=== PATIENT | female | born 1985 | race Two or more races ===

== ENCOUNTER 2016-03-02 16:05 | Inpatient (IN) | payer OTHER ==
[~2016-03-02] VITALS: Ht 165.1 cm; Wt 115.2 kg
[~2016-03-02 16:05] MED LIST: PREN1TAB47 PO
[2016-03-02] MEDS ORDERED: Phenylephrine 10,000 mCg/mL Inj ONE (16:50)
[2016-03-02] MEDS ORDERED: Oxytocin 10 Unit/mL Inj ONE (16:50)
[2016-03-02] MEDS ORDERED: Morphine PF 1 mg/mL 10 mL Inj ONE (16:50)
[2016-03-02] MEDS ORDERED: Bupiv-Spinal 0.75%/Dex 8.25% 2 mL Inj ONE (16:50)
[2016-03-02 16:57] LABS: Mean Corpuscular Hemoglobin 29.7 pg (27.0-35.0); Mean Corpuscular Volume 87.9 fL (81-100)
[2016-03-02] MEDS ORDERED: CeFAZolin Inj 2 GM in IV Premix 1 EACH IV SCH (17:00)
[2016-03-02] MEDS ORDERED: Sodium Citrate-Citric Acid 15 mL Solution PO SCH (17:00)
[2016-03-02] MEDS ORDERED: CeFAZolin 2 Gm/50 mL D5W Duplex Bag IV ONE (17:06)
[2016-03-02] MEDS ORDERED: Lactated Ringer's 2,000 ML IV ONE (17:06)
[2016-03-02] MEDS ORDERED: Morphine PF 1 mg/mL 10 mL Inj INTRATHEC ONE (17:30)
[2016-03-02] MEDS ORDERED: Lactated Ringer's 1,000 ML IV ONE (17:40)
--- NOTE | 2016-03-02 18:21 | PCM.HPANE ---
Patient Data Date of Service: Mar 02, 2016 ([id number]) Surgeon Admitting Provider:Inocente Beck MD Attending Provider:Inocente Beck MD Primary Care Physician:Inocente Beck MD Other Provider: Reason for Visit Term Labor Check Ht/WT & BMI Body Mass Index Allergies Coded Allergies: No Known Allergies (Unverified Allergy, Unknown, 03/02/16) Medications Reported Medications Vit/Fe Fumarate/Fa-Expunged Drug, Do (-Expunged Drug, Do Not Renew!)1 Tab Tablet1 Tab PO DAILY 01/06/12 Stop/Bang Risk Assessment Category Category 1A: Patient has history of documented sleep apnea, and HAS NOT received any narcotic, sedative or anesthesia administration during this stay. Category 1B: Patient has history of documented sleep apnea, and HAS received any narcotic , sedative or anesthesia administration during this stay Category 2: Patient has SUSPECTED Obstructive Sleep Apnea, and HAS received any narcotic , sedative or anesthesia administration during this stay. Category 3: Patient has SUSPECTED Obstructive Sleep Apnea and HAS NOT received narcotic, sedative or anesthesia administration during this stay. Category 4: Outpatient in Procedural Areas with known sleep apnea or who screen positive for High Risk via the STOP/BANG questionnaire. Exam Exam General Appearance: Alert, Oriented X3, Cooperative HEENT/AIRWAY: MP 2, Neck Movement (FROM), Mouth Opening (3 FBMO) Lungs: Normal Air Movement Heart: Regular Rate/Rhythm Meds/Labs/Diagnostics Admission Meds Current Medications Lactated Ringer's (Lr) 2,000 ml @ ud STK-MED ONCE IV Last administered on t 17:13; Start 03/02/16 at 17:06; Stop 03/02/16 at 17:07; Status DC Labs Test 03/02/16 16:50 White Blood Count 10.3th/mm3 (3.8-10.1) Red Blood Count 4.31mil/mm3 (3.90-5.20) Hemoglobin 12.8g/dL (12.0-15.6) Hematocrit 37.9% (35.0-46.0) Mean Corpuscular Volume 87.9fL (81-100) Mean Corpuscular Hemoglobin 29.7pg (27.0-35.0) Mean Corpuscular Hemoglobin Concent 33.8% (32.0-37.0) Red Cell Distribution Width 13.6% (12.3-15.4) Platelet Count 208bil/L (150-400) Plan Impression Patient chart reviewed, patient interviewed and anesthestic plan with risks, benefits, and alternatives discussed, and informed consent obtained. NPO Status: EMERGENT C/S SECONDARY TO NRFHT, AT TOAST AROUND 4 HRS AGO ASA Physical Status: ASA2 Mod Systemic Disease Anesthetic Plan: SAB Bene/Risks/Altern/Consents: Yes HP Complete Prior to Induction: Yes Other Discussion with Dr. Javier about GETA vrs SAB. Dr Javier believed SAB was OK as long as it didn't take too long. Anesthesia risks discussed. AQA. Consent signed. Dillan Jenkins MD Mar 02, 2016 18:21
[2016-03-02] MEDS ORDERED: Lactated Ringer's 1,000 ML IV SCH (19:07)
[2016-03-02] MEDS ORDERED: Oxytocin 30 Units/500 mL LR 30 UNITS in IV Premix 1 EACH IV PRN (19:10)
[2016-03-02] MEDS ORDERED: HYDROcodone-APAP 5-325 mg Tablet PO PRN (19:10)
[2016-03-02] MEDS ORDERED: Oxytocin 10 Unit/mL Inj IM PRN (19:10)
[2016-03-02] MEDS ORDERED: Methylergonovine 0.2 mg/mL Inj IM PRN (19:10)
[2016-03-02] MEDS ORDERED: Carboprost 250 mCg/mL Inj IM PRN (19:10)
[2016-03-02] MEDS ORDERED: Acetaminophen IV 1,000 MG in IV Premix 1 EACH IV PRN (19:10)
[2016-03-02] MEDS ORDERED: Sodium Chloride LOK Flush 10 mL Syringe IVFLUSH PRN (19:10)
[2016-03-02] MEDS ORDERED: LANOlin HPA 7 Gm Ointment TOPICAL PRN (19:10)
[2016-03-02] MEDS ORDERED: Hemorrhage Kit, Post Partum XX ONE (19:10)
[2016-03-02] MEDS ORDERED: fentaNYL-PF 50 mCg/mL 2 mL Inj IVPUSH PRN (19:15)
[2016-03-02] MEDS ORDERED: HYDROmorphone 1 mg/mL Inj IVPUSH PRN (19:15)
[2016-03-02] MEDS ORDERED: Dexamethasone 4 mg/mL Inj IVPUSH PRN (19:15)
[2016-03-02] MEDS ORDERED: Ondansetron 2 mg/mL 2 mL Inj IVPUSH PRN (19:15)
[2016-03-02] MEDS ORDERED: EPHEDrine Sulfate 50 mg/mL Inj IVPUSH PRN (19:15)
[2016-03-02] MEDS ORDERED: Phenylephrine/NS-PF 100 mCg/mL 5 mL Syringe IVPUSH PRN (19:15)
[2016-03-02] MEDS ORDERED: Atropine 0.4 mg/mL Inj IV PRN (19:15)
--- NOTE | 2016-03-02 19:19 | PCM.ANEP2 ---
Post Anesthesia Evaluation ASA/CMS Post Anesthesia VS in Patient's Normal Range?: Yes Resp Stable; Airway Patent?: Yes CV Function & Hydration Stable: Yes Mental Status Recovered?: Yes Pain control Satisfactory?: Yes N/V Control Satisfactory?: Yes Dillan Jenkins MD Mar 02, 2016 19:19
--- NOTE | 2016-03-02 19:19 | PCM.ANEP1 ---
Post Anesthesia Phase 1 PACU Phase 1 Assessment Date of Service: Mar 02, 2016 (0237) Anesthetic Administered: SAB Level of Alertness: Awake, talking RAMOS's with Equal Strength: No (SAB still in effect) Pain: No Nausea or Vomiting: No Oxygen Delivery: Room Air Lungs: Normal Air Movement Dermatome Level: T10 (Umbilicus) Dillan Jenkins MD Mar 02, 2016 19:19
--- NOTE | 2016-03-02 23:39 | HP ---
[address] [address] HISTORY AND PHYSICAL PATIENT: MIMI VILLAREAL : 1985 MR#: [id number] ADMIT: 03/02/2016 JOB ID: [id number] HISTORY OF PRESENT ILLNESS: This is a 31-year-old female. She is para 3, at 40 weeks . She presented to [facility] for decreased movement. She also was diagnosed with influenza a couple days ago and she was on Tamiflu. She presented for decreased movement today. At triage, it was noticed that her heart tracing baseline was at 170. It started with no variability and slightly increased to minimal variability. There was no acceleration. There was late deceleration with contractions. She has no other complaints. ALLERGIES: She has no known drug allergies. PAST MEDICAL HISTORY: Declined other medical problems and surgeries before. SOCIAL HISTORY: Not complicated. OBSTETRICAL HISTORY: She has three vaginal deliveries before. GYNECOLOGIC HISTORY: Not complicated. PHYSICAL EXAMINATION: She is afebrile at this time. Blood pressure in normal range. The mother's heart rate was 84. Mother's blood pressure was 102-105/55- 75. Her abdomen is soft, nontender. Extremities nontender. Pelvic examination noticed her cervix was 4-5 cm dilated, 70% effaced, and the head station was -2. She has occasional contraction. No leaking of fluid. ASSESSMENT AND PLAN: This is a 31-year-old patient multiparity, para 3, with three vaginal deliveries before. She is a patient of Dr. Beck. At this time, the patient had category 2 tracing which is concerning, not reassuring, so IV fluid bolus was ordered and we will have close followup of heart tracing at this time. I plan to observe for 15-20 minutes with intrauterine resustation with IV fluid, oxygen. If heart tracing improve or become to category 1 tracing, I may start for induction. If the tracing is not improving, this patient need be delivered by section immediately. discussed with the patient and with Dr. Beck. During the observation about 10 minutes after the IV fluid started there was another contraction with a significant late deceleration. At this time, discussed with the patient, and plan was to have emergency section. Anesthesia, agency sales development associate informed about situation. Antibiotics ordered for emergency section. Informed consent signed. MTDD
--- NOTE | 2016-03-02 23:48 | OP ---
[address] [address] OPERATIVE REPORT PATIENT: MIMI VILLAREAL : 1985 MR#: [id number] ADMIT: 03/02/2016 JOB ID: [id number] DATE OF SURGERY: 03/02/2016 INDICATION: This is a 31-year-old female. She is para 4 now, status post primary section. SURGEON: Latha Javier MD. POWDER CARRIER: Inocente Beck MD. INDICATION OF THE PROCEDURE: 4, para 3, at 40 weeks , nonreassuring heart tracing, remote from delivery. PREOPERATIVE DIAGNOSIS(ES): 4, para 3, at 40 weeks , nonreassuring heart tracing, remote from delivery. POSTOPERATIVE DIAGNOSIS(ES): 4, para 3, at 40 weeks , nonreassuring heart tracing, remote from delivery. PROCEDURE: The patient present for decreased movement. There was nonreassuring heart tracing activity with category 2 tracing, which is baseline at 170, minimal variability, with late decels, and no improvement with short period of time of observation. Discussed with patient , discussed of indication, benefits and risks of primary section. Patient understood there is risk of infection, bleeding, injury to the organs around the uterus, including, but not limited to the bladder, ureters, major vessels, nerves and bowels. She understood the risk of blood transfusion. Informed consent signed. The patient was transferred to operating room. After spinal anesthesia was noted to be adequate, she was placed in dorsal supine position with a leftward tilt. She was prepared and draped in normal sterile fashion. A Pfannenstiel incision was placed with scalpel and this incision was carried through to underlying fascia with Bovie. A transverse incision was placed on fascia and extended bilaterally with Encinas scissors. The superior aspect of the incision was grasped by straight Annika, tented up. The underlying rectus muscle was dissected off. The inferior aspect of the incision was grasped by straight Annika tented up. The underlying rectus muscle was dissected off. Then, the rectus muscle was in the midline. The underlying peritoneum identified, entered sharply. Then, the peritoneum was extended both bluntly and sharply. The lower blade inserted to expose the lower segment of the uterus. The vesicouterine peritoneum entered sharply and extended bilaterally with Encinas scissors. Bladder flap created digitally. Lower blade reinserted. A transverse incision was placed on the lower segment of uterus and extended bluntly. At this time, it was noticed there was thick meconium through the membrane. The membrane ruptured. The infant delivered without difficulty. Shoulder and chest delivered without difficulty. It was noticed there was thick meconium and the cord and the placenta all stained with dark green color at this time. Then, the cord clamped and cut. The infant handed to the waiting automotive technician. Regular cord blood gas collected. Then, the placenta delivered spontaneously completely, and examined with three-vessel cord. The uterus exteriorized. All the debris and clots cleared from the field. Then, the incision was closed by 0-Vicryl continuously with locked fashion and the second layer was placed for imbrication. At this time, the incision was examined and noticed a couple of bleeders. A couple of [id number] stitches was placed. The bleeding became better. At this time, pressure was placed. The abdominal cavity was irrigated by warm normal saline. At this time, the ovaries and tubes were examined and both look normal. The uterus was returned back to the abdominal cavity. The uterine incision was re-examined and noticed bleeder from close to the right side of the incision. A 3-0 chromic suture was used for a couple of [id number]. Hemostasis confirmed. All the debris and clots removed and the pelvic cavity was irrigated for a second time and hemostasis confirmed again. At this time, the fascia was reapproximated with 0-Vicryl continuously. The subcutaneous tissue was reapproximated by 2-0 plain sutures. The skin was closed by 4-0 Monocryl on a Jordin needle. Patient tolerated the procedure well. All instrument, needles, laps and gauzes counted correct twice. The EBL during the procedure was 500 cc. IV fluid was 1.2 L. Urine output was about 100 cc clear urine. Patient transferred to recovery room in stable condition. [facility]ITALJean
[2016-03-03 07:47] LABS: Mean Corpuscular Hemoglobin 30.3 pg (27.0-35.0); Mean Corpuscular Volume 87.1 fL (81-100)
--- NOTE | 2016-03-03 15:06 | PCM.PNOBPP ---
Subjective Date of Service Mar 03, 2016 Post : Primary Ceserean Delivery Visit History Ale is a 31 y/o 4, para 3, who presented at 40 weeks 2 days gestation with decreased movement and was found to have nonreassuring heart tracing ( tachycardia with late decelerations), remote from delivery on 03/02/2015. She underwent an emergent with Dr. Javier. With delivery, Apgars were low at 2,4,5 and resuscitation and intubation performed. She had been seen a couple days earlier with the diagnosis of influenza and started on Tamiflu. Her was otherwise uncomplicated. Subjective Doing well this am. Her pain is well controlled, but she reports some itching. She did receive duramorph in her spinal. She had her malave removed and was able to void without difficult. She denies N/V. She reports normal lochia. She denies CP/SOB/cough. She states her baby is stable and reintubated with a pneumothorax at [facility]. Pain Management: PO pain meds, Good Pain Control Postop Activity: Ambulating in Room Only Labs Received TDaP and influenza vaccinations this . Group B Strep Results: Negative Rubella: Immune Blood Type: A RH Type: Positive Labs Laboratory Tests 03/03/16 06:45: White Blood Count 14.4, Red Blood Count 3.73, Hemoglobin 11.3, Hematocrit 32.5, Mean Corpuscular Volume 87.1, Mean Corpuscular Hemoglobin 30.3, Mean Corpuscular Hemoglobin Concent 34.8, Red Cell Distribution Width 13.3, Platelet Count 211 Exam Vital Signs Vital Signs: VS reviewed, stable (136/69 80 20 36.1 97-100% RA) Exam Abdomen: Uterus is, Fundus firm, Abdomen soft, Abdomen appropriately tender, Other (Moderately distended and tympanic.) : Voiding without difficulty Extremities: Edema 1+, SCDs on, Other (Warm. No calf tenderness.) Lungs: Clear to Auscultation, Normal Air Movement Heart: Exam Unremarkable, Regular Rate/Rhythm, Normal S1, Normal S2 General: Alert, Oriented X3, Cooperative, No Acute Distress Surgical Wound : Dressing & Drainage Status: Dry & Intact Additional Information Laboratory Tests 72 Hours Test 03/02/16 16:50 03/03/16 06:45 White Blood Count 10.3th/mm3 (3.8-10.1) 14.4th/mm3 (3.8-10.1) Red Blood Count 4.31mil/mm3 (3.90-5.20) 3.73mil/mm3 (3.90-5.20) Hemoglobin 12.8g/dL (12.0-15.6) 11.3g/dL (12.0-15.6) Hematocrit 37.9% (35.0-46.0) 32.5% (35.0-46.0) Mean Corpuscular Volume 87.9fL (81-100) 87.1fL (81-100) Mean Corpuscular Hemoglobin 29.7pg (27.0-35.0) 30.3pg (27.0-35.0) Mean Corpuscular Hemoglobin Concent 33.8% (32.0-37.0) 34.8% (32.0-37.0) Red Cell Distribution Width 13.6% (12.3-15.4) 13.3% (12.3-15.4) Platelet Count 208bil/L (150-400) 211bil/L (150-400) UOP: 350mL over the last 6 hours > 58.33mL/h > 0.5mL/kg/h OB Post Assessment/Plan Assessment -Ale is a 31 y/o 4, now para 4 POD#1 from a PLTCS for NRFHTs and [facility] -Patient is doing well today and we will continue routine postoperative care. -Given her abdominal distension, I encouraged po fluids and ambulation. She does not have N/V. Will continue to monitor for signs of ileus. No concerns currently. I anticipate resolution with time, po fluids and ambulation. -RH+ and rubella immune - no Rhogam or immunization indicated. -No concerning symptoms regarding influenza today. -Continue SCDs and ambulation for VTE prophylaxis. Problems: (1) S/P primary low transverse Status: Acute ICD Code: Z98.89 VTE Mechanical Devices: Intermittant Pneumatic CD Ronnie Aceves MD Mar 03, 2016 15:06
--- NOTE | 2016-03-03 17:32 | HP ---
[address] [address] HISTORY AND PHYSICAL PATIENT: MIMI VILLAREAL : 1985 MR#: [id number] ADMIT: 03/02/2016 JOB ID: [id number] CHIEF COMPLAINT: Decreased movement. HISTORY OF PRESENT ILLNESS: A 31-year-old, 4, para 3, with an EDC of February 29, 2016, presents to the Center with decreased movement. She contacted my office this afternoon reporting decreased movement and was directed to come to the Center immediately. Triage nursing contacted me because of a heart rate late deceleration, as well as tachycardia and minimal variability. The patient was checked and found to be 4 cm dilation. IV fluids were started and labs sent. I discussed case with Dr. Javier, on-call for [employer]. The patient then had a 2nd late variable deceleration and recommendation was made to proceed with emergent section due to intolerance of labor. The patient was in the Center in the early hours of March 01 due to fever, body aches, not feeling well overall. A rapid influenza test returned positive at that point. She was treated with IV fluids, acetaminophen, and oseltamivir (generic Tamiflu). At that time heart rate was tachycardic, consistent with a maternal fever. There were also several heart rate decelerations that I did not become aware of until today/now when she returned with the decreased movement. The patient's membranes are still intact. She has been taking her oseltamivir faithfully. LABORATORY: Blood type A positive. Rubella immune. Serology nonreactive. Hepatitis B surface antigen and HIV tests were negative at the onset of . Hematocrit was 36.8 at 27 weeks. Her antibody screen was negative at 12 weeks. A1c in July was 5.3. Chlamydia and gonorrhea cultures were negative at that time. She declined risk testing. A urine culture showed no growth in July 2015. A 27-week glucose tolerance test showed a fasting of 70, a 1-hour of 96, and a 2-hour of 75. She is GBS negative, screened January 29, 2016. Her Pap was normal in July of this year. ISSUES: 1. Excess weight. 2. Recent diagnosis of influenza A. ALLERGIES: None known. CURRENT MEDICATIONS: vitamins 1 tablet daily. HEALTHCARE MAINTENANCE: The patient had a flu vaccine December 02, 2015 and a Tdap vaccine December 30, 2015. SOCIAL HISTORY: She is , mother of three. Her is a hospitalist physician. She is a nonsmoker, drinks no alcohol, and has previously denied recreational drug use. FAMILY HISTORY: Positive for diabetes and hypertension on both sides of the family. PAST GYNECOLOGIC HISTORY: 4, para 3. Three prior deliveries at term, all vaginal. weights of 6 pounds 14 ounces, 8 pounds, and 8 pounds respectively per her recollection. PHYSICAL EXAMINATION: Vital signs at 1619: Weight is 256 pounds, temperature 36.6 Celsius, pulse 84, respirations 18, blood pressure 125/75. Per nursing exam she is 4 cm dilated. When I arrive the patient is currently receiving an epidural and I cannot recheck her cervix. heart tracing shows a baseline of 170, minimal variability, and several late decelerations. ASSESSMENT: 1. Gravid at 40 and 2/7 weeks. 2. Recent diagnosis of influenza. 3. heart rate decelerations, late, consistent with intolerance of labor. 4. Excess weight. 5. GBS negative. PLAN: Emergent as detailed by Dr. Javier's note. Patient and partner updated on the plan. Pediatrics will be present at delivery. DUNCAN
[2016-03-03] MEDS: oxyCODONE-Acetamin 5-325 mg Tablet PO PRN (20:47)
[2016-03-04] MEDS ORDERED: DOCU-41 PO (08:16)
[2016-03-04] MEDS ORDERED: IBUP-1827 PO (08:16)
[2016-03-04] MEDS ORDERED: OXYC1TAB24 PO (08:16)
--- NOTE | 2016-03-04 08:20 | PCM.DIOB ---
Omid Nelson 03/04/16 0820: Obstetrical Disch Instruction Date of Service: Mar 04, 2016 Dates of Hospitalization Date of Hospital Admission Mar 02, 2016 at 16:49 Providers Admitting Physician: Latha Javier MD Primary Care Physician: Inocente Beck MD Attending Physician: Inocente Beck MD Discharge Diagnosis Discharge Diagnosis s/p low transverse cesarian section Problems: (1) S/P primary low transverse Status: Acute ICD Code: Z98.89 Diet Discharge Diet: No restrictions Activity Discharge Activity-General: Pelvic Rest for 6 weeks, Try not to overdue, Balance rest and activity, Ice incision 3-5 time/day for 20min, Activity as pain allows, Activity as energy allows, No lifting >10 pounds for 4-6 weeks Dressing and Incisional Care Dressing Care: Keep dressing clean, dry & intact, Allow Steri Stripes to fall off Hygiene: May shower, DO NOT soak incision under water, NO bathtub, hot tub or whirlpool Additional Instructions Discharge Instructions Do not take more pain medication (Percocet) than is necessary -- less is better. Percocet pills have Tylenol (acetaminophen) in them at 325mg per pill. Do not take Tylenol in addition to your pain medication but should take one or the other. Percocet can give you constipation so you have also been given a prescription for docusate to keep you regular. Pelvic rest for 6 weeks (nothing per vagina including intercourse, tampons) If you have a fever greater than 100.4, please call [facility]. There is always someone pest controller to talk to. If you have an increase in bleeding, call [facility]. If you have a lot of bleeding suddenly, especially if you have symptoms of dizziness & weakness with it, get emergency help. When you see [facility] in two weeks, you will be informed of the results of all the labs. If you start experiencing extreme depression, especially if you feel that you are a danger to yourself or your family, seek emergency help. You have been through a lot -- BE SURE TO TAKE CARE OF YOURSELF. Follow Up Plan Follow Up Plan Be sure to follow up in [address] Javier of [facility] and then again in [address] Beck. Follow-up Provider (F9): Latha Javier MD Follow-up appointment: Weeks (2) Latha Javier MD 03/06/16 1552: Obstetrical Disch Instruction Attending Statement POD2 after primary c/section. Doing well. Will discharge home. I saw and examined patient. Omid Nelson DO Mar 04, 2016 08:20 Latha Javier MD Mar 06, 2016 15:52
[2016-03-04] MEDS: oxyCODONE-Acetamin 5-325 mg Tablet PO PRN (08:24)
[2016-03-04 08:30] VITALS: BP 123/75; PULSE 85; RESP 18
--- NOTE | 2016-03-04 08:32 | PCM.DC.OB ---
Obstetrical Discharge Summary Date of Service Mar 04, 2016 Date of hospital admission Mar 02, 2016 at 16:49 Date of Discharge: Mar 04, 2016 Providers Admitting Physician: Latha Javier MD Primary Care Physician: Inocente Beck MD Attending Physician: Inocente Beck MD Diagnosis at Time of Discharge s/p low transverse cesarian section Problems: (1) S/P primary low transverse Status: Acute ICD Code: Z98.89 Brief History and Physical: Taken from History and Physical composed by Dr. Latha Javier on 03/02/15 This is a 31-year-old female. She is para 3, at 40 weeks . She presented to [facility] for decreased movement. She also was diagnosed with influenza a couple days ago and she was on Tamiflu. She presented for decreased movement. At triage, it was noticed that her heart tracing baseline was at 170. It started with no variability and slightly increased to minimal variability. There was no acceleration. There was late deceleration with contractions. She has no other complaints. Physical Exam Gen: A/O x3 pleasant cooperative woman in mild acute distress secondary to acutely stressful situation HEENT: EOMI, PERRL, mucous membranes pink and moist Neck: Supple, non-tender, no lymphadenopathy CV: RRR, no murmurs rubs or gallops Resp: Lungs CTA BL, no wheezes rales or rhonchi Abdomen: Well approximated low transverse cesarian incision without erythema or drainage, appropriately tender to palpation, no rebound masses or guarding Extr: Trace BL LE edema, no cyanosis or clubbing Neuro: CN 2-12 grossly intact, no focal neurologic deficit. Hospital Course: Taken From Operative note composed by Dr. Latha Javier on 03/03/15 The patient present for decreased movement. There was nonreassuring heart tracing activity with category 2 tracing, which is baseline at 170, minimal variability, with late decels, and no improvement with short period of time of observation. Discussed with patient and , discussed of indication, benefits and risks of primary section. Patient understood there is risk of infection, bleeding, injury to the organs around the uterus, including, but not limited to the bladder, ureters, major vessels, nerves and bowels. She understood the risk of blood transfusion. Informed consent signed. The patient was transferred to operating room. After spinal anesthesia was noted to be adequate, she was placed in dorsal supine position with a leftward tilt. She was prepared and draped in normal sterile fashion. A Pfannenstiel incision was placed with scalpel and this incision was carried through to underlying fascia with Bovie. A transverse incision was placed on fascia and extended bilaterally with Encinas scissors. The superior aspect of the incision was grasped by straight Annika, tented up. The underlying rectus muscle was dissected off. The inferior aspect of the incision was grasped by straight Annika, tented up. The underlying rectus muscle was dissected off. Then, the rectus muscle was in the midline. The underlying peritoneum identified, entered sharply. Then, the peritoneum was extended both bluntly and sharply. The lower blade inserted to expose the lower segment of the uterus. The vesicouterine peritoneum entered sharply and extended bilaterally with Encinas scissors. Bladder flap created digitally. Lower blade reinserted. A transverse incision was placed on the lower segment of uterus and extended bluntly. At this time, it was noticed there was thick meconium through the membrane. The membrane ruptured. The delivered without difficulty. Shoulder and chest delivered without difficulty. It was noticed there was thick meconium and the cord and the placenta all stained with dark green color at this time. Then, the cord clamped and cut. The handed to the waiting hatchery supervisor. Regular cord blood gas collected. Then, the placenta delivered spontaneously completely, and examined with three-vessel cord. The uterus exteriorized. All the debris and clots cleared from the field. Then, the incision was closed by 0-Vicryl continuously with locked fashion and the second layer was placed for imbrication. At this time, the incision was examined and noticed a couple of bleeders. A couple of figure-of- eight stitches was placed. The bleeding became better. At this time, pressure was placed. The abdominal cavity was irrigated by warm normal saline. At this time, the ovaries and tubes were examined and both look normal. The uterus was returned back to the abdominal cavity. The uterine incision was re-examined and noticed bleeder from close to the right side of the incision. A 3-0 chromic suture was used for a couple of [id number]. Hemostasis confirmed. All the debris and clots removed and the pelvic cavity was irrigated for a second time and hemostasis confirmed again. At this time, the fascia was reapproximated with 0-Vicryl continuously. The subcutaneous tissue was reapproximated by 2-0 plain sutures. The skin was closed by 4-0 Monocryl on a Jordin needle. Patient tolerated the procedure well. All instrument, needles, laps and gauzes counted correct twice. The EBL during the procedure was 500 cc. IV fluid was 1.2 L. Urine output was about 100 cc clear urine. Patient transferred to recovery room in stable condition. At the time of discharge the patient was ambulating independently with a tolerable amount of pain on PO analgesia, was voiding without difficulty, appetite was good with adequate PO intake, and she felt eager and ready for discharge. Docusate Sodium (Colace) 100 Mg Capsule 100 MG PO BID Prescribed by: NIKO NELSON DO Ibuprofen (Ibuprofen) 600 Mg Tablet 600 MG PO Q6H PRN PRN For Pain Prescribed by: NIKO NELSON DO Vit/Fe Fumarate/Fa-Expunged Drug, Do (-Expunged Drug, Do Not Renew!) 1 Tab Tablet 1 TAB PO DAILY (Reported) oxyCODONE-Acetaminophen 5-325 mg (oxyCODONE-Acetaminophen 5-325 mg) 1 Each Tablet 1-2 TAB PO Q4H PRN PRN For Pain Prescribed by: NIKO NELSON DO Disposition Home with no needs Follow-up plan Be sure to follow up in [address] [facility], and then again in [address] Beck. Discharge Diet: No restrictions Discharge Activity-General: Pelvic Rest for 6 weeks, Try not to overdue, Be up and about, Balance rest and activity, Ice incision 3-5 time/day for 20min, Activity as pain allows, Activity as energy allows, No lifting >15 pounds for 2 weeks Patient instructions Do not take more pain medication (Percocet) than is necessary -- less is better. Percocet pills have Tylenol (acetaminophen) in them at 325mg per pill. Do not take Tylenol in addition to your pain medication but should take one or the other. Percocet can give you constipation so you have also been given a prescription for docusate to keep you regular. Pelvic rest for 6 weeks (nothing per vagina including intercourse, tampons) If you have a fever greater than 100.4, please call [facility]. There is always someone awake overnight monitor to talk to. If you have an increase in bleeding, call [facility]. If you have a lot of bleeding suddenly, especially if you have symptoms of dizziness & weakness with it, get emergency help. When you see [facility] in two weeks, you will be informed of the results of all the labs. If you start experiencing extreme depression, especially if you feel that you are a danger to yourself or your family, seek emergency help. You have been through a lot -- BE SURE TO TAKE CARE OF YOURSELF. Attending Statement: Doing well , 2 days after primary c/section. Will discharge home today. Niko Nelson DO Mar 04, 2016 08:32 Latha Javier MD Mar 06, 2016 15:53
--- NOTE | 2016-03-08 12:01 | PATH ---
SURGICAL PATHOLOGY Attending Physician:Inocente Beck MD CASE STATUS: Signed Out PATIENT NAME: MIMI VILLAREAL PID: [id number] : 1985 DATE COLLECTED:03/02/2016 00:00 SPECIMEN: Placenta CLINICAL HISTORY: A: PLACENTA FINAL DIAGNOSIS: 1.PLACENTA (481 GRAMS): MATURE PLACENTA WITH NO EVIDENCE OF CHORIOAMNIONITIS OR FUNISITIS. ICD10 CODE O77.9 GROSS DESCRIPTION: The specimen is received in formalin, labeled with the patient's name and consists of an intact placenta and includes placental disc (481 g, 17.8 x 16.1 x 3.5 cm), portion of umbilical cord (length-2.2 cm, diameter-1.6 x 0.6 cm) and membranes. The membranes, umbilical cord and placental surface are muddled rodriguez-green, brown and yellow. The membranes are ruptured 1.5 cm from the free edge of the placenta and are translucent. The umbilical cord is attached 3.5 cm from the edge of the placenta, is edematous and contains 3 vessels. The surface is smooth and shiny. The maternal surface is dark maroon with normal cotyledon formation. The placental disc is spongy with no hematomas, infarcts, nodules, masses, or lesions. Section code: (A) edge of placenta with membranes, umbilical cord; (B, C-D) placenta, 2 full thickness sections. 03/05/16 JM MICRO DESCRIPTION: See diagnosis. ICD-9 CODES: CPT CODES: 1: 74330 Electronically Signed Out Alberto Myers MD [facility] [address], [place] [address] Technical component performed at [facility], [facility] [address], [address]
== END 2016-03-04 09:55 | disposition home or self-care (01) | DRG 766 ==
LOC: FBCO 16:05 → FBC 16:49
PROVIDERS: ADMIT Obstetrics & Gynecology; ATTEND Obstetrics & Gynecology
PROC: 10D00Z1 Extraction of Products of Conception, Low, Open Approach (ICD-10-PCS; principal; 2016-03-02 17:19)
DX: O76 Abnormality in fetal heart rate and rhythm complicating labor and delivery (principal); Z37.0 Single live birth; Z3A.40 40 weeks gestation of pregnancy; O77.0 Labor and delivery complicated by meconium in amniotic fluid; O69.81X0 Labor and delivery complicated by cord around neck, without compression, not applicable or unspecified; J10.1 Influenza due to other identified influenza virus with other respiratory manifestations; O99.52 Diseases of the respiratory system complicating childbirth